=== PATIENT | male | born 1960 | race African-American/Black ===

== ENCOUNTER 2017-06-21 16:18 | Emergency (ER) | payer MEDICAID ==
[~2017-06-21] VITALS: Ht 170.2 cm; Wt 91.0 kg
[~2017-06-21 16:18] MED LIST: ALLO100T30 PO; CITA10TA8 PO; GABA-826 PO; METH750T87 PO; RISP1TAB3 PO; SIMV20TA3 PO; TRAZ100T15 PO
[2017-06-21] MEDS ORDERED: SODIUM CHLORIDE 0.9% 1,000ML IVBOLUS ONE (16:30)
[2017-06-21] MEDS ORDERED: ONDANSETRON 2MG/ML, 2ML IVPush ONE (16:30)
[2017-06-21] MEDS ORDERED: CHLORDIAZEPOXIDE 10 MG CAPSULE PO PRN (16:30)
[2017-06-21] MEDS ORDERED: MULT-224 PO (16:34)
[2017-06-21] MEDS ORDERED: TAMS0.4C2 PO (16:35)
[2017-06-21] MEDS ORDERED: MELA1TAB19 SL (16:35)
[2017-06-21] MEDS ORDERED: ENAL1TAB5 PO (16:36)
[2017-06-21] MEDS ORDERED: CYAN1TAB29 PO (16:37)
[2017-06-21] MEDS ORDERED: HYDR200T PO (16:37)
[2017-06-21] MEDS ORDERED: ONDANSETRON 2MG/ML, 2ML ONE (16:55)
[2017-06-21 16:58] LABS: MEAN CORPUSCULAR HEMOGLOBIN 30.6 pg (27.5-34.5); MEAN CORPUSCULAR HGB CONC 33.7 g/dL (33.2-36.2); MEAN CORPUSCULAR VOLUME 90.9 fL (81-97); MEAN PLATELET VOLUME 9.1 fL (7.4-10.4); PLATELET COUNT 166 x10^3/uL (130-400); RED BLOOD COUNT 5.02 x10^6/uL (4.38-5.82); RED CELL DISTRIBUTION WIDTH 13.1 % (9.4-14.8)
[2017-06-21 17:09] LABS: ALBUMIN 3.5 g/dL (3.4-5.0); ANION GAP 19 mmol/L (5-15); CALCIUM 7.9 mg/dL (8.5-10.1); CHLORIDE 100 mmol/L (98-107)
[2017-06-21 17:10] LABS: SALICYLATE LEVEL < 1.7 mg/dL (2.8-20.0)
[2017-06-21 17:12] LABS: ALANINE AMINOTRANSFERASE 143 U/L (12-78); ALKALINE PHOSPHATASE 85 U/L (45-117); CREATININE 1.09 mg/dL (0.7-1.3); TOTAL PROTEIN 7.8 g/dL (6.4-8.2)
[2017-06-21 17:18] LABS: ACETAMINOPHEN < 2 mcg/mL (10-30)
[2017-06-21 17:22] LABS: BASOPHILS # (AUTO) 0.04 x10^3/uL (0-0.1); BASOPHILS % (AUTO) 0 % (0-1); EOSINOPHILS # (AUTO) 0.05 x10^3/uL (0-0.4); EOSINOPHILS % (AUTO) 0 % (1-7); LYMPHOCYTES # (AUTO) 4.98 x10^3/uL (1-3.4); LYMPHOCYTES % (AUTO) 43 % (22-44); MD SCAN; MONOCYTES # (AUTO) 0.64 x10^3/uL (0.2-0.8); MONOCYTES % (AUTO) 6 % (2-9); NEUTROPHILS # (AUTO) 5.82 x10^3/uL (1.8-6.8); NEUTROPHILS % (AUTO) 51 % (42-75)
[2017-06-21 18:10] LABS: AMPHETAMINE SCREEN, URINE Negative (Negative); BARBITURATE SCREEN, URINE Negative (Negative); BENZODIAZEPINE SCREEN, URINE Negative (Negative); CANNABINOID SCREEN, URINE Positive (Negative); COCAINE SCREEN, URINE Negative (Negative); METHADONE SCREEN, URINE Negative (Negative); OPIATE SCREEN, URINE Negative (Negative)
[2017-06-21 18:17] VITALS: BP 122/65
== END 2017-06-21 18:29 | disposition home or self-care (01) ==
LOC: ED 18:21
DX: K29.20 Alcoholic gastritis without bleeding (principal); F10.120 Alcohol abuse with intoxication, uncomplicated
CPT/HCPCS: 36415; 80053; 80307; 80329; 85025; 96361; 96374; 99284; J2405; J7030; G0480

== ENCOUNTER 2017-06-22 09:19 | Emergency (ER) | payer MEDICAID ==
[~2017-06-22 09:19] MED LIST changes: +CYAN1TAB29 PO; +ENAL1TAB5 PO; +HYDR200T PO; +MELA1TAB19 SL; +MULT-224 PO; +TAMS0.4C2 PO
[2017-06-22 09:22] VITALS: BP 150/98
== END 2017-06-22 11:44 | disposition home or self-care (01) ==
LOC: ED 09:39
DX: F10.220 Alcohol dependence with intoxication, uncomplicated (principal)
CPT/HCPCS: 99283